=== PATIENT | female | born 1995 | race Caucasian/White ===

== ENCOUNTER 2016-11-06 17:27 | Emergency (ER) | payer MEDICAID ==
[~2016-11-06] VITALS: Wt 67.0 kg
[~2016-11-06 17:27] MED LIST: BISM262O23 PO; CEPH-443 PO; ZOF8 PO
[2016-11-06 19:23] LABS: URINE BLOOD (Dip) POC 2+ (NEGATIVE)
[2016-11-06] MEDS ORDERED: SOD CHLORIDE 0.9% 1,000 ML IV ONE (19:30)
[2016-11-06 20:11] LABS: BASOPHILS % 0.3 % (0.0-2.0); EOSINOPHILS % 0.4 % (0.0-7.0); HEMATOCRIT 46.1 % (37.0-47.0); HEMOGLOBIN 15.6 g/dl (12.0-16.0); LYMPHOCYTES # 1.4 10^3/ul (0.8-2.9); LYMPHOCYTES % 13.9 % (15.0-51.0); MEAN CORPUSCULAR HGB CONC 33.8 g/dl (32.0-37.0); MEAN CORPUSCULAR VOLUME 91.8 fl (82.0-101.0); MEAN PLATELET VOLUME 8.1 fl (7.4-10.4); MONOCYTE # 0.4 10^3/ul (0.3-0.9); MONOCYTES % 3.9 % (0.0-11.0); NEUTROPHIL # 8.2 10^3/ul (1.6-7.5); NEUTROPHILS % 81.5 % (39.0-77.0); PLATELET COUNT 309 10^3/UL (140-440); RED BLOOD COUNT 5.02 10^6/ul (4.20-5.40); RED CELL DISTRIBUTION WIDTH 13.4 % (11.5-14.5); UNCORRECTED WBC 10.1 10^3/ul (4.8-10.8); WHITE BLOOD COUNT 10.1 10^3/ul (4.8-10.8)
[2016-11-06 20:13] LABS: CHLORIDE 101 mmol/L (97-110); INR 0.98; POTASSIUM 3.7 mmol/L (3.5-5.1); SODIUM 144 mmol/L (135-144)
[2016-11-06 20:14] LABS: CONDITION 1; PARTIAL THROMBOPLASTIN TIME 27.3 Sec (25.0-35.0)
[2016-11-06 20:16] LABS: ANION GAP 22 (8-16); BLOOD UREA NITROGEN 13 mg/dl (7-20); CALCIUM 10.1 mg/dl (8.4-10.2); CARBON DIOXIDE 25 mmol/L (21-31); CREATININE 0.77 mg/dl (0.44-1.00); GLUCOSE 99 mg/dl (70-220)
[2016-11-06 20:31] LABS: TROPONIN-I < 0.012 ng/ml (0.00-0.12)
--- NOTE | 2016-11-06 21:18 | ERD ---
ER Documentation Chief Complaint Date/Time DATE: 11/06/16 TIME: 21:12 Chief Complaint PALPITATIONS SINCE THIS AM HPI This is a 21-year-old female presenting to the emergency department for palpitations 1 day. Patient states symptoms started this morning. Patient feels chest pressure and difficulty breathing at times. No cough. Denies nausea, vomiting, diarrhea or abdominal pain. No dysuria or hematuria. No history of any heart problems or asthma. No wheezing. No difficulty swallowing or muffled voice. No fevers or chills. Last menstrual period October 11, 2016 ROS All systems reviewed and are negative except as per history of present illness. Medications Home Meds Active Scripts Cephalexin* (Keflex*) 500 Mg Capsule, 500 MG PO QID for 5 Days, CAP Prov:KIMBERLEE BOOTH MD 02/01/16 Bismuth Subsalicylate* (Pepto-Bismol*) 262 Mg/15 Ml Oral.susp, 15 ML PO Q3H Y for DIARRHEA for 4 Days, ML Prov:KIMBERLEE BOOTH MD 02/01/16 Ondansetron Hcl* (Zofran* ODT) 8 mg -ODT Tab.disper, 8 MG PO Q6 Y for NAUSEA AND /OR VOMITING, #8 TAB Prov:KIMBERLEE BOOTH MD 02/01/16 Allergies Allergies: Coded Allergies: Penicillins (Unverified Allergy, Unknown, RASH, 02/11/15) PMhx/Soc Medical and Surgical Hx: pt denies Surgical Hx History of Surgery: No Anesthesia Reaction: No Hx Neurological Disorder: No Hx Respiratory Disorders: No Hx Cardiac Disorders: No Hx Psychiatric Problems: No Hx Miscellaneous Medical Probl: Yes (Pyelonephritis) Hx Alcohol Use: No Hx Substance Use: No Hx Tobacco Use: No Smoking Status: Current every day smoker Physical Exam Vitals Vital Signs Date Time Temp Pulse Resp B/P Pulse Ox O2 Delivery O2 Flow Rate FiO2 11/06/16 17:31 98.0 126 18 149/90 99 Physical Exam const: No acute distress, alert Head: Atraumatic Eyes: Normal Conjunctiva. PERRL ENT: Normal External Ears, Nose and Mouth. No erythema or exudate posterior pharynx. TMs normal bilaterally.. Neck: Full range of motion..~ No meningismus. Resp: Clear to auscultation bilaterally. No wheezing, rhonchi or crackles. Cardio: Regular rate and rhythm, no murmurs Abd: Soft, non tender, non distended. Normal bowel sounds Skin: No petechiae or rashes Back: No midline or flank tenderness Ext: No cyanosis, or edema Neur: Awake and alert Psych: Normal Mood and Affect Result Diagram: 11/06/16192511/06/161925 Results 24 hrs Laboratory Tests Test 11/06/16 19:25 11/06/16 19:26 Bedside Urine Blood 2+ Bedside Urine Glucose (UA) Negative Bedside Urine Ketones (LAB) Negative Bedside Urine Leukocyte Esterase (L Negative Bedside Urine Nitrite (LAB) Negative Bedside Urine Protein (LAB) Negative Bedside Urine pH (LAB) 5.5 Activated Partial Thromboplast Time 27.3Sec Anion Gap 22 Basophils # 0.010^3/ul Basophils % 0.3% Beta HCG, Quantitative 97.5mIU/ml Blood Urea Nitrogen 13mg/dl Calcium Level 10.1mg/dl Carbon Dioxide Level 25mmol/L Chloride Level 101mmol/L Creatinine 0.77mg/dl Eosinophils # 0.010^3/ul Eosinophils % 0.4% Glucose Level 99mg/dl Hematocrit 46.1% Hemoglobin 15.6g/dl INR International Normalized Ratio 0.98 Lymphocytes # 1.410^3/ul Lymphocytes % 13.9% Mean Corpuscular Hemoglobin 31.0pg Mean Corpuscular Hemoglobin Concent 33.8g/dl Mean Corpuscular Volume 91.8fl Mean Platelet Volume 8.1fl Monocytes # 0.410^3/ul Monocytes % 3.9% Neutrophils # 8.210^3/ul Neutrophils % 81.5% Nucleated Red Blood Cells # 0.010^3/ul Nucleated Red Blood Cells % 0.0/100WBC Platelet Count 79155^3/UL Potassium Level 3.7mmol/L Prothrombin Time 13.0Sec Prothrombin Time Ratio 1.0 Red Blood Count 5.0210^6/ul Red Cell Distribution Width 13.4% Sodium Level 144mmol/L Troponin I < 0.012ng/ml White Blood Count 10.110^3/ul Current Medications Medications (Trade) Dose Ordered Sig/Carlos Route PRN Reason Start Time Stop Time Status Last Admin Dose Admin Sodium Chloride (NS) 1,000 ml @ 1,000 mls/hr Q1H ONCE IV 11/06/16 19:30 11/06/16 20:29 DC 11/06/16 19:29 Procedures/MDM ED COURSE: The patient was stable throughout ED course. I kept the patient and/or family informed of laboratory and diagnostic imaging results throughout the ED course. Laboratory CBC no significant infection or anemia BMP no significant electrolyte imbalance PT 13 PTT 27.3 INR 0.98 Troponin less than 0.012 Beta-hCG 97.5 Imaging Chest x-ray was ordered however canceled after urine positive. EKG: As interpreted by Dr. Figueroa and myself Rate/Rhythm: Normal sinus rhythm with incomplete right bundle branch block with heart rate 99 bpm QRS, ST, T-waves: No changes consistent w/ acute ischemia Impression: No evidence of ischemia or arrhythmia MDM: 21-year-old female presents emergency department for heart palpitations and chest pressure starting today. An IV access obtained and patient was given IV fluid bolus of normal saline. Labs are unremarkable. Troponin is negative. Urine is negative for infection. Urine is positive. EKG shows normal sinus rhythm with incomplete right bundle branch block with heart rate 99 bpm. Patient appears calm and comfortable throughout ED visit. Heart rate has reduced since initial vital signs were taken. No signs or symptoms of respiratory distress. Physical exam is overall unremarkable. Patient informed that she is . Patient was unaware of this. Resources provided for local [facility] clinics. Patient is appropriate for outpatient management. Instructed patient to follow- up with [facility] and primary care provider in the next 2-3 days for reassessment and additional management. Return to ED for any high fever, chest pain, difficulty breathing, shortness breath, wheezing, vomiting, diarrhea, abdominal pain or any new or worsening symptoms. Patient verbalizes understanding. All questions answered at discharge. Departure Diagnosis: Primary Impression: Palpitations Additional Impression: Weeks of gestation: unspecified Qualified Code: Z33.1 - , unspecified gestational age Condition: Stable Patient Instructions: Palpitations, , New Dx Referrals: COMMUNITY CLINICS YOU HAVE RECEIVED A MEDICAL SCREENING EXAM AND THE RESULTS INDICATE THAT YOU DO NOT HAVE A CONDITION THAT REQUIRES URGENT TREATMENT IN THE EMERGENCY DEPARTMENT. FURTHER EVALUATION AND TREATMENT OF YOUR CONDITION CAN WAIT UNTIL YOU ARE SEEN IN YOUR DOCTORS OFFICE WITHIN THE NEXT 1-2 DAYS. IT IS YOUR RESPONSIBILITY TO MAKE AN APPOINTMENT FOR FOLOW-UP CARE. IF YOU HAVE A PRIMARY DOCTOR --you should call your primary doctor and schedule an appointment IF YOU DO NOT HAVE A PRIMARY DOCTOR YOU CAN CALL OUR PHYSICIAN REFERRAL HOTLINE AT IF YOU CAN NOT AFFORD TO SEE A PHYSICIAN YOU CAN CHOSE FROM THE FOLLOWING [facility] [address] [facility] [address] [facility] [address] [facility] [address] [facility] [address] [facility]. [facility] [address] [facility]. [facility] YOU HAVE RECEIVED A MEDICAL SCREENING EXAM AND THE RESULTS INDICATE THAT YOU DO NOT HAVE A CONDITION THAT REQUIRES URGENT TREATMENT IN THE EMERGENCY DEPARTMENT. FURTHER EVALUATION AND TREATMENT OF YOUR CONDITION CAN WAIT UNTIL YOU ARE SEEN IN YOUR DOCTORS OFFICE WITHIN THE NEXT 1-2 DAYS. IT IS YOUR RESPONSIBILITY TO MAKE AN APPOINTMENT FOR FOLOW-UP CARE. IF YOU HAVE A PRIMARY DOCTOR --you should call your primary doctor and schedule and appointment IF YOU DO NOT HAVE A PRIMARY DOCTOR YOU CAN CALL OUR PHYSICIAN REFERRAL HOTLINE AT . IF YOU CAN NOT AFFORD TO SEE A PHYSICIAN YOU CAN CHOSE FROM THE FOLLOWING [facility]: [facility] [address] [place] [address] [facility] [address] [place] [address] [facility] [address] [place] [address] [facility] REFERRAL [place] DOMÍ[place]UE[place] [address] [facility] [address] [place] [address] OFFICE FAX DAVID SANCHEZ [address] [place] [address] [address] ROBLES [place] [address] [place], [place] [id number] DR GARCIA [facility] [address], [address], [place] [address] [address] CLEARY, [facility] [address] [facility] [place] [address] [facility] [address] [place] [address] [address] [facility], [facility] [address] - [address] BALL, CARLA [address] [facility] [address] [address] [place]ELA, [place] [address] [facility]. [address], [place] [address] [address] MARTINEZ, [facility] [address] [place], [place] [id number] Additional Instructions: Call your primary care doctor TOMORROW for an appointment during the next 2-3 days.See the doctor sooner or return here if your condition worsens before your appointment time. Return to ED for any high fever, chest pain, difficulty breathing, shortness breath, wheezing, vomiting, diarrhea, abdominal pain or any new or worsening symptoms. SOLANGE MIRZA NP Nov 06, 2016 21:18
[2016-11-06 21:25] VITALS: BP 122/59; PULSE 69; RESP 18; TEMP 99.5
== END 2016-11-06 21:25 | disposition home or self-care (01) ==
LOC: FTE 17:27
DX: R00.2 Palpitations (principal); F17.210 Nicotine dependence, cigarettes, uncomplicated; R07.89 Other chest pain; Z33.1 Pregnant state, incidental
CPT/HCPCS: 36415; 80048; 81003; 84484; 84702; 85025; 85610; 85730; 93005; J7030; Z7502

== ENCOUNTER 2016-12-23 09:36 | Emergency (ER) | payer MEDICAID ==
[~2016-12-23] VITALS: Ht 157.5 cm; Wt 67.8 kg
[2016-12-23 09:41] VITALS: Ht 157.5 cm; Wt 67.8 kg
[2016-12-23] MEDS ORDERED: ACETAMINOPHEN 500 MG TAB PO STA (11:53)
[2016-12-23 12:16] LABS: ADD SCAN DIFF NO
[2016-12-23 12:19] LABS: ADD UMIC YES; URINE BILIRUBIN (Dip) NEGATIVE (NEGATIVE); URINE BLOOD (Dip) 2+ (NEGATIVE); URINE COLOR LT. YELLOW (YELLOW); URINE GLUCOSE (Dip) NEGATIVE (NEGATIVE); URINE KETONES (Dip) NEGATIVE (NEGATIVE); URINE LEUKOCYTE ESTERASE (Dip) 1+ (NEGATIVE); URINE NITRITE (Dip) NEGATIVE (NEGATIVE); URINE TOTAL PROTEIN (Dip) NEGATIVE (NEGATIVE); URINE UROBILINOGEN (Dip) 0.2 E.U./dL (0.1-1.0)
[2016-12-23 12:23] LABS: BASOPHILS % 0.3 % (0.0-2.0); EOSINOPHILS # 0.1 10^3/ul (0.0-0.5); EOSINOPHILS % 1.5 % (0.0-7.0); HEMOGLOBIN 15.4 g/dl (12.0-16.0); LYMPHOCYTES # 2.4 10^3/ul (0.8-2.9); LYMPHOCYTES % 30.1 % (15.0-51.0); MEAN CORPUSCULAR HGB CONC 32.8 g/dl (32.0-37.0); MEAN CORPUSCULAR VOLUME 94.6 fl (82.0-101.0); MEAN PLATELET VOLUME 10.4 fl (7.4-10.4); MONOCYTE # 0.4 10^3/ul (0.3-0.9); MONOCYTES % 5.4 % (0.0-11.0); NEUTROPHIL # 4.9 10^3/ul (1.6-7.5); NEUTROPHILS % 62.4 % (39.0-77.0); PLATELET COUNT 221 10^3/UL (140-415); RED BLOOD COUNT 4.97 10^6/ul (4.20-5.40); RED CELL DISTRIBUTION WIDTH 12.3 % (11.5-14.5); WHITE BLOOD COUNT 7.8 10^3/ul (4.8-10.8)
[2016-12-23 13:07] LABS: BACTERIA,URINE MANY
[2016-12-23] MEDS ORDERED: CEPHALEXIN 500 MG CAP PO ONE (13:30)
--- NOTE | 2016-12-23 13:43 | RADRPT ---
PROCEDURE: US Pelvis/OB. CLINICAL INDICATION: vaginal bleeding TECHNIQUE: Multiple sonographic images of the pelvis were obtained utilizing a transabdominal and endovaginal technique. The images were reviewed on a PACS workstation. COMPARISON: None. FINDINGS: There is a small cystic structure within the endometrium measuring 2.1 cm which would correspond to a calculated gestational age of 6 weeks and 6 days. No pole or normal yolk sac is visualized. The ovaries are normal. No abnormal adnexal masses are present. The right ovary measures 2.5 x 1.5 x 1.5 cm. The left ovary measures 2.4 x 1.9 x 1.7 cm. No significant free fluid is present within the pelvis. RPTAT: AA IMPRESSION: Cystic structure within the endometrium corresponding to a 6 weeks and 6-day gestation with no pole. The findings likely represent a nonviable . Close followup ultrasound and hCG is recommended. .Amador Pan MD, MD Date Time Electronically viewed and signed by .Amador Pan MD, on 12/23/2016 13:43 .S/
[2016-12-23] MEDS ORDERED: CEPH-443 PO (14:02)
--- NOTE | 2016-12-23 14:06 | ERD ---
ER Documentation Chief Complaint Date/Time DATE: 12/23/16 TIME: 14:04 Chief Complaint 8 weeks with ap HPI This 21-year-old female presents with lower pelvic pain for last 3 days. She is approximately 8 weeks by dates. She has some spotting as well. She denies fevers. She has had some vomiting since diagnosis of , nonbilious nonbloody. ROS All systems reviewed and are negative except as per history of present illness. Medications Home Meds Active Scripts Cephalexin* (Keflex*) 500 Mg Capsule, 500 MG PO QID for 5 Days, CAP Prov:KIMBERLEE BOOTH MD 12/23/16 Cephalexin* (Keflex*) 500 Mg Capsule, 500 MG PO QID for 5 Days, CAP Prov:KIMBERLEE BOOTH MD 02/01/16 Bismuth Subsalicylate* (Pepto-Bismol*) 262 Mg/15 Ml Oral.susp, 15 ML PO Q3H Y for DIARRHEA for 4 Days, ML Prov:KIMBERLEE BOOTH MD 02/01/16 Ondansetron Hcl* (Zofran* ODT) 8 mg -ODT Tab.disper, 8 MG PO Q6 Y for NAUSEA AND /OR VOMITING, #8 TAB Prov:KIMBERLEE BOOTH MD 02/01/16 Allergies Allergies: Coded Allergies: Penicillins (Verified Allergy, Unknown, RASH, 12/23/16) PMhx/Soc Medical and Surgical Hx: pt denies Medical Hx, pt denies Surgical Hx History of Surgery: No Anesthesia Reaction: No Hx Neurological Disorder: No Hx Respiratory Disorders: No Hx Cardiac Disorders: No Hx Psychiatric Problems: No Hx Miscellaneous Medical Probl: Yes (Pyelonephritis) Hx Alcohol Use: No Hx Substance Use: No Hx Tobacco Use: No Smoking Status: Never smoker Physical Exam Vitals Vital Signs Date Time Temp Pulse Resp B/P Pulse Ox O2 Delivery O2 Flow Rate FiO2 12/23/16 09:41 98.1 78 18 118/59 99 Physical Exam Const: [] Head: Atraumatic Eyes: Normal Conjunctiva ENT: Normal External Ears, Nose and Mouth. Neck: Full range of motion..~ No meningismus. Resp: Clear to auscultation bilaterally Cardio: Regular rate and rhythm, no murmurs Abd: Soft, non tender, non distended. Normal bowel sounds Skin: No petechiae or rashes Back: No midline or flank tenderness Ext: No cyanosis, or edema Neur: Awake and alert Psych: Normal Mood and Affect Result Diagram: 12/23/16 1200 Results 24 hrs Laboratory Tests Test 12/23/16 12:00 Basophils # 0.010^3/ul Basophils % 0.3% Beta HCG, Quantitative 59750.0mIU/ml Eosinophils # 0.110^3/ul Eosinophils % 1.5% Hematocrit 47.0% Hemoglobin 15.4g/dl Lymphocytes # 2.410^3/ul Lymphocytes % 30.1% Mean Corpuscular Hemoglobin 31.0pg Mean Corpuscular Hemoglobin Concent 32.8g/dl Mean Corpuscular Volume 94.6fl Mean Platelet Volume 10.4fl Monocytes # 0.410^3/ul Monocytes % 5.4% Neutrophils # 4.910^3/ul Neutrophils % 62.4% Nucleated Red Blood Cells # 0.010^3/ul Nucleated Red Blood Cells % 0.0/100WBC Platelet Count 00967^3/UL Red Blood Count 4.9710^6/ul Red Cell Distribution Width 12.3% Urine Bacteria MANY Urine Bilirubin NEGATIVE Urine Clarity CLEAR Urine Color LT. YELLOW Urine Epithelial Cells MANY Urine Glucose NEGATIVE% Urine Hemoglobin 2+ Urine Ketones NEGATIVE Urine Leukocyte Esterase 1+ Urine Microscopic RBC 10-25/HPF Urine Microscopic WBC 10-25/HPF Urine Nitrite NEGATIVE Urine Specific [place] 1.025 Urine Total Protein NEGATIVE Urine Urobilinogen 0.2 E.U./dL Urine Yeast MODERATE Urine pH 5.5 White Blood Count 7.810^3/ul Current Medications Medications (Trade) Dose Ordered Sig/Carlos Route PRN Reason Start Time Stop Time Status Last Admin Dose Admin Acetaminophen (Tylenol Tab) 500 mg ONCE STAT PO 12/23/16 11:53 12/23/16 11:54 DC 12/23/16 12:03 Cephalexin (Keflex) 500 mg ONCE ONCE PO 12/23/16 13:30 12/23/16 13:31 DC 12/23/16 13:52 Procedures/MDM Quantitative hCG approximately 42,000. Patient is Rh+. Pelvic ultrasound shows approximately 2 cm intrauterine saclike structure without visible pole or yolk sac. There is no signs of adnexal . Urine shows 1+ leukocytes. Patient was given Keflex 500 mg of mouth. Patient presents with pelvic pain and vaginal bleeding of early . Differential includes early normal , threatened miscarriage, ectopic . Patient will be discharged home with instructions for recheck in 2 days. Patient gives additional history is associated your doctor yesterday and was told that she did have a failed was told to schedule D&C but she presented for a second opinion, this is why she was not forthcoming with previous visit of her PCP yesterday. Signs or symptoms currently not consistent with appendicitis, additional causes of abdominal pain patient should recheck as directed. Departure Diagnosis: Primary Impression: Threatened Condition: Stable Patient Instructions: Possible Miscarriage (Threatened ) Additional Instructions: Recommend repeat blood work and hormone level in 2 days. May be early normal , possible early miscarriage or possible ectopic. Urine shows infection will be treated for this as well. Recheck otherwise for new or worsening symptoms. KIMBERLEE BOOTH MD Dec 23, 2016 14:06
[2016-12-23 14:35] VITALS: BP 225/65; PULSE 56; RESP 16; TEMP 98.5
== END 2016-12-23 14:35 | disposition home or self-care (01) ==
LOC: FTE 09:36
DX: O20.0 Threatened abortion (principal); R10.2 Pelvic and perineal pain; Z3A.01 Less than 8 weeks gestation of pregnancy
CPT/HCPCS: 36415; 76801; 76817; 81001; 81003; 84702; 85025; 86900; 86901; Z7502; Z7610

== ENCOUNTER 2017-04-13 22:19 | Emergency (ER) | payer MEDICAID ==
[~2017-04-13] VITALS: Ht 152.4 cm; Wt 61.0 kg
[2017-04-13 22:23] VITALS: Ht 152.4 cm; Wt 61.0 kg
[2017-04-13] MEDS ORDERED: LIDOCAINE 1% (MDV) 20 ML INJ SC ONE (23:30)
[2017-04-13] MEDS ORDERED: IBUPROFEN 600 MG TAB PO ONE (23:30)
[2017-04-13] MEDS ORDERED: DIPHTH/TET/ACEL PERTUSS (ADULT) 0.5 ML VIAL IM* ONE (23:30)
[2017-04-13] MEDS ORDERED: BACITRACIN 0.9 GM OINT TOP ONE (23:30)
--- NOTE | 2017-04-14 00:13 | RADRPT ---
PROCEDURE: Right tibia and fibula. CLINICAL INDICATION: Pain. TECHNIQUE: 2 views including AP and lateral views of the right tibia and fibula were obtained. COMPARISON: None. FINDINGS: There is no fracture, dislocation or bone destruction. The joint spaces are within normal limits. Bone mineralization is within normal limits. There is no radiopaque foreign body or abnormal calcif ication. IMPRESSION: No evidence of fracture or radiopaque foreign body. .Nate Rausch MD, Date Time Electronically viewed and signed by .Nate Rausch MD, MD on 04/14/2017 00:13 .T/
--- NOTE | 2017-04-14 00:16 | ERD ---
ER Documentation Chief Complaint Date/Time DATE: 04/13/17 Chief Complaint Foreign body "toothpick" imbedded on right leg skin HPI The patient is a 21-year-old female who presents to the Emergency Department with complaint of a retained foreign body to the right lower extremity. The patient reports that yesterday, her brother was playing with colored toothpicks on the couch. When she returned home, she jumped onto the couch with bent knees , and suddenly felt a sharp pain to the right pretibial area, from a toothpick that was partially sticking out of her skin. The patient notes that she was able to remove a piece of the toothpick, but feels as if there is still a retained portion of the toothpick within her wound to the right lower extremity. Upon waking up this morning, she noted increased pain to the area, with mild surrounding erythema, warmth, swelling and tenderness to palpation. She denies any further bleeding or any spontaneous drainage. Denies crepitus. Denies fevers, sweats, chills, nausea or vomiting. Tetanus status unknown. No other complaints at this time. ROS All systems reviewed and are negative except as per history of present illness. Medications Home Meds Active Scripts Sulfamethoxazole/Trimethoprim* (Bactrim Ds* Tablet) 1 Each Tablet, 1 TAB PO BID for 7 Days, TAB Prov:MICHAEL GUAMAN PA-C 04/14/17 Cephalexin* (Keflex*) 500 Mg Capsule, 500 MG PO QID for 5 Days, CAP Prov:KIMBERLEE BOOTH MD 12/23/16 Cephalexin* (Keflex*) 500 Mg Capsule, 500 MG PO QID for 5 Days, CAP Prov:KIMBERLEE BOOTH MD 02/01/16 Bismuth Subsalicylate* (Pepto-Bismol*) 262 Mg/15 Ml Oral.susp, 15 ML PO Q3H Y for DIARRHEA for 4 Days, ML Prov:KIMBERLEE BOOTH MD 02/01/16 Ondansetron Hcl* (Zofran* ODT) 8 mg -ODT Tab.disper, 8 MG PO Q6 Y for NAUSEA AND /OR VOMITING, #8 TAB Prov:KIMBERLEE BOOTH MD 02/01/16 Allergies Allergies: Coded Allergies: Penicillins (Verified Allergy, Unknown, RASH, 12/23/16) PMhx/Soc Medical and Surgical Hx: pt denies Medical Hx, pt denies Surgical Hx History of Surgery: No Anesthesia Reaction: No Hx Neurological Disorder: No Hx Respiratory Disorders: No Hx Cardiac Disorders: No Hx Psychiatric Problems: No Hx Miscellaneous Medical Probl: Yes (Pyelonephritis) Hx Alcohol Use: No Hx Substance Use: No Hx Tobacco Use: No Smoking Status: Never smoker Physical Exam Vitals Vital Signs Date Time Temp Pulse Resp B/P Pulse Ox O2 Delivery O2 Flow Rate FiO2 04/14/17 01:13 98.1 68 17 131/72 97 Room Air 04/13/17 22:23 98.3 65 20 125/72 99 Physical Exam Const: Well-developed, well-nourished, in no acute distress. Head: Normocephalic. Atraumatic. Eyes: Normal Conjunctiva ENT: Normal External Ears, Nose and Mouth. Moist mucous membranes. Neck: Supple. Full range of motion. Resp: Clear to auscultation bilaterally Cardio: Regular rate and rhythm. Abd: Soft, non tender, non distended. Skin: Small puncture wound to the right pretibial region with 1 cm x 1 cm circular region of surrounding erythema, warmth, swelling and tenderness to palpation. No abscess formation. No crepitus. No lymphatic streaking. No purulent drainage. Back: No midline or flank tenderness Ext: No clubbing or cyanosis. Normal range of motion of the upper and lower extremities bilaterally. Distal pulses 2+. Capillary refill is less than 2 seconds. Distal neurovascular status intact. Neur: Awake and alert. Motor and sensation grossly intact. Psych: Cooperative. Appropriate. Results 24 hrs Current Medications Medications (Trade) Dose Ordered Sig/Carlos Route PRN Reason Start Time Stop Time Status Last Admin Dose Admin Ibuprofen (Motrin) 600 mg ONCE ONCE PO 04/13/17 23:30 04/13/17 23:31 DC 04/14/17 00:20 Diphtheria/ Tetanus/Acell Pertussis (Adacel) 0.5 ml ONCE ONCE IM* 04/13/17 23:30 04/13/17 23:31 DC 04/14/17 00:21 Lidocaine (Xylocaine 1% (Mdv) 20 ml) 20 ml ONCE ONCE SC 04/13/17 23:30 04/13/17 23:31 DC Bacitracin (Bacitracin Oint (Ud)) 1 applic ONCE ONCE TOP 04/13/17 23:30 04/13/17 23:31 DC 04/14/17 00:22 Procedures/MDM DIAGNOSTIC TESTS AND INTERPRETATION: PROCEDURE: Right tibia and fibula. CLINICAL INDICATION: Pain. TECHNIQUE: 2 views including AP and lateral views of the right tibia and fibula were obtained. COMPARISON: None. FINDINGS:There is no fracture, dislocation or bone destruction. The joint spaces are within normal limits. Bone mineralization is within normal limits. There is no radiopaque foreign body or abnormal calcification. IMPRESSION:No evidence of fracture or radiopaque foreign body. .Nate Rausch MD, MD Date Time Electronically viewed and signed by .Nate Rausch MD, MD on 04/14/2017 00:13 PROCEDURE: FOREIGN BODY REMOVAL FROM RIGHT LOWER EXTREMITY INDICATION: Retained foreign body to the right lower extremity. CONSENT:Consent was obtained from the patient prior to the procedure. Indications, risks, and benefits were explained at length. PROCEDURE SUMMARY: A timeout protocol was performed prior to initiating the procedure. The patient was positioned appropriately. The site was anesthetized with 1.5 cc 1% lidocaine without epinephrine. NaCl and Betadine were used for wound cleansing. Using an 11-blade scalpel, the patient's puncture wound edges were extended to a total of 1.5 cm linear wound opening to the right lower extremity. The wound was then explored. The area was prepared and draped in the usual sterile manner with the wound exposed. Using Maggie Forceps, a 0.5 cm distal piece of toothpick was removed from the patient's wound, intact. No further foreign bodies seen. The patient's wound was then irrigated with normal saline. Three 5.0 simple interrupted Ethilon sutures were placed with good approximation. Bleeding was minimal. The patient tolerated the procedure well without complications. The wound was dressed with bacitracin and sterile gauze. Standard post-procedure care was explained and return precautions were given. MEDICAL DECISION MAKING: This is a 21-year-old female who presents to the emergency department for a foreign body to her right lower extremity, that was removed successfully. The wound is now clean and dry, with no evidence of further retained foreign body seen. The patient tolerated the procedure well. The patient continues to be stable, and neurovascularly intact, with no evidence of complication. The foreign body, which was the distal end of a toothpick, was returned to the patient, per her request. At this time, I believe the patient is suitable for outpatient management, and she will be discharged home with prescription for Bactrim DS and given strict return precautions for signs of deteriorating or worsening condition. I recommend that she follow up with her primary care provider in 2-3 days for reevaluation and further management, or return to the ER sooner for any new or worsening symptoms. I shared my medical decision making and plan with the patient at length and in great detail, and she verbally understands and agrees with the plan for further observation and care as an outpatient. At the time of discharge all questions were answered. Departure Diagnosis: Primary Impression: Foreign body of skin of lower leg Encounter type: initial encounter Laterality: right Qualified Code: S80.851A - Foreign body of skin of lower leg, right, initial encounter Condition: Stable Patient Instructions: Foreign Body, Soft Tissue (Removed) Additional Instructions: Call your primary care doctor TOMORROW for an appointment during the next 2-3 days for wound check, reevaluation and further management. See the doctor sooner or return here if your condition worsens before your appointment time. Suture removal in 7 days. MICHAEL GUAMAN PA-C Apr 14, 2017 00:16
[2017-04-14] MEDS ORDERED: SULF1TAB31 PO (00:58)
[2017-04-14 01:13] VITALS: BP 131/72; PULSE 68; RESP 17; TEMP 98.1
== END 2017-04-14 01:14 | disposition home or self-care (01) ==
LOC: FTE 22:19
DX: S81.841A Puncture wound with foreign body, right lower leg, initial encounter (principal); W22.8XXA Striking against or struck by other objects, initial encounter; Y92.9 Unspecified place or not applicable; Z23 Encounter for immunization
CPT/HCPCS: 12001; 73590; 90471; 90715; Z7502; Z7610

== ENCOUNTER 2017-04-22 15:43 | Emergency (ER) | payer MEDICAID ==
[~2017-04-22] VITALS: Ht 157.5 cm; Wt 59.5 kg
[~2017-04-22 15:43] MED LIST changes: +SULF1TAB31 PO
[2017-04-22 15:45] VITALS: Ht 157.5 cm; Wt 59.5 kg
[2017-04-22] MEDS ORDERED: ACETAMINOPHEN 325 MG TAB PO ONE (16:00)
[2017-04-22] MEDS ORDERED: IBUP400T22 PO (17:07)
[2017-04-22] MEDS ORDERED: NEOM28OI TP (17:07)
--- NOTE | 2017-04-22 17:18 | RADRPT ---
PROCEDURE: XR left foot. CLINICAL INDICATION: Laceration. Glass. TECHNIQUE: AP, lateral and oblique views of the left foot were obtained. COMPARISON: None. FINDINGS: Mineralization is within normal limits. No fracture or osseous lesion is identified. There is no e vidence for dislocation. The metatarsophalangeal, interphalangeal, and mid tarsal joint spaces are preserved. The soft tissues are unremarkable. There is no evidence for a radiopaque foreign body. IMPRESSION: Unremarkable left foot series without evidence of radiopaque foreign body. RPTAT:HJJR Physician Anjel Date Time Electronically viewed and signed by Physician Anjel on 04/22/2017 17:18 /
--- NOTE | 2017-04-22 17:23 | ERD ---
ER Documentation Chief Complaint Date/Time DATE: 04/22/17 TIME: 17:09 Chief Complaint LEFT FOOT POSSIBLE [place] HPI 21-year-old female complains of a puncture on her left foot. She stepped broken coffee mug when she stepped on it. She is concerned about a piece of glass in her foot. She has restricted range of motion weakness. Her tetanus is up-to-date last week when she stepped on a toothpick. ROS All systems reviewed and are negative except as per history of present illness. Medications Home Meds Active Scripts Ibuprofen* (Motrin*) 400 Mg Tab, 400 MG PO Q6, #15 TAB Prov:KIMBERLEE BOOTH MD 04/22/17 Neomycin Marcelnio/Bacitrac Zn/Poly (Triple Antibiotic Ointment) 28 Gm Oint...g., 28 GM TP TID for 7 Days Prov:KIMBERLEE BOOTH MD 04/22/17 Sulfamethoxazole/Trimethoprim* (Bactrim Ds* Tablet) 1 Each Tablet, 1 TAB PO BID for 7 Days, TAB Prov:MICHAEL GUAMAN PA-C 04/14/17 Cephalexin* (Keflex*) 500 Mg Capsule, 500 MG PO QID for 5 Days, CAP Prov:KIMBERLEE BOOTH MD 12/23/16 Cephalexin* (Keflex*) 500 Mg Capsule, 500 MG PO QID for 5 Days, CAP Prov:KIMBERLEE BOOTH MD 02/01/16 Bismuth Subsalicylate* (Pepto-Bismol*) 262 Mg/15 Ml Oral.susp, 15 ML PO Q3H Y for DIARRHEA for 4 Days, ML Prov:KIMBERLEE BOOTH MD 02/01/16 Ondansetron Hcl* (Zofran* ODT) 8 mg -ODT Tab.disper, 8 MG PO Q6 Y for NAUSEA AND /OR VOMITING, #8 TAB Prov:KIMBERLEE BOOTH MD 02/01/16 Allergies Allergies: Coded Allergies: Penicillins (Verified Allergy, Unknown, RASH, 12/23/16) PMhx/Soc History of Surgery: No Anesthesia Reaction: No Hx Neurological Disorder: No Hx Respiratory Disorders: No Hx Cardiac Disorders: No Hx Psychiatric Problems: No Hx Miscellaneous Medical Probl: Yes (Pyelonephritis) Hx Alcohol Use: No Hx Substance Use: No Hx Tobacco Use: No Physical Exam Vitals Vital Signs Date Time Temp Pulse Resp B/P Pulse Ox O2 Delivery O2 Flow Rate FiO2 04/22/17 15:45 98.3 65 18 138/81 97 Physical Exam Const: [] Alert, not ill-appearing. Head: Atraumatic Eyes: Normal Conjunctiva ENT: Normal External Ears, Nose and Mouth. Neck: Full range of motion..~ No meningismus. Resp: Clear to auscultation bilaterally Cardio: Regular rate and rhythm, no murmurs Abd: Soft, non tender, non distended. Normal bowel sounds Skin: No petechiae or rashes Back: No midline or flank tenderness Ext: No cyanosis, or edema. There is approximately 2 mm puncture wound on the medial aspect of left foot around the tarsometatarsal area. There is no erythema or discharge. There is appreciated gross foreign body. Neur: Awake and alert Psych: Normal Mood and Affect Results 24 hrs Current Medications Medications (Trade) Dose Ordered Sig/Carlos Route PRN Reason Start Time Stop Time Status Last Admin Dose Admin Acetaminophen (Tylenol Tab) 650 mg ONCE ONCE PO 04/22/17 16:00 04/22/17 16:01 DC 04/22/17 16:08 Procedures/MDM 1 cc of lidocaine was injected into the left foot puncture wound after prepped with Betadine. No foreign body was appreciated via blunt dissection. X-ray Foot 3V Interpreted by me: Bones: [No fracture] Joints: [No dislocation] Foreign body: [None] impression-normal left foot x-ray. Patient presents with a puncture wound left foot without appreciated foreign body, fracture, signs of infection. She will treated with ibuprofen wound care instructions for wound check in 2 days. Patient was advised to return for fevers, redness, new worsening symptoms with primary doctor this week. Departure Diagnosis: Primary Impression: Puncture wound Condition: Stable Patient Instructions: Puncture Wound, Foot Additional Instructions: No foreign body appreciated today. Recheck in 2-3 days for redness, fevers, new worsening symptoms. KIMBERLEE BOOTH MD Apr 22, 2017 17:21
== END 2017-04-22 17:17 | disposition home or self-care (01) ==
LOC: FTE 15:43
DX: S91.332A Puncture wound without foreign body, left foot, initial encounter (principal); W25.XXXA Contact with sharp glass, initial encounter; Y92.9 Unspecified place or not applicable
CPT/HCPCS: 73630; Z7502; Z7610

== ENCOUNTER 2017-08-28 21:00 | Emergency (ER) | payer SELFPAY ==
[~2017-08-28] VITALS: Ht 160 cm; Wt 62.3 kg
[~2017-08-28 21:00] MED LIST changes: +IBUP400T22 PO; +NEOM28OI TP
[2017-08-28 21:42] VITALS: Ht 160 cm; Wt 62.3 kg
== END 2017-08-28 23:20 | disposition left against medical advice (07) ==
LOC: FTE 21:00 → E/R 23:20
DX: Z53.21 Procedure and treatment not carried out due to patient leaving prior to being seen by health care provider (principal)

== ENCOUNTER 2017-09-08 08:33 | Emergency (ER) | payer SELFPAY ==
[~2017-09-08] VITALS: Wt 59.6 kg
--- NOTE | 2017-09-08 09:29 | ERD ---
ER Documentation Chief Complaint Chief Complaint RASH ON ARMS/BACK, ONSET 3 WEEKS HPI 21-year-old female who presents emergency department rash to back that started 4 days ago. Stated that her bilateral arm rash started 3 weeks ago. She added that the itchiness is worse at night. LMP: 3 weeks ago. A1. Denies headache, dizziness, blurred vision, throat pain, difficulty swallowing, throat tightness, throat itchiness, shoulder pain, chest pain, chest tightness, abdominal pain, nausea, vomiting, constipation, diarrhea, or possibility of being , urinary symptoms, loss of bowel bladder control, changes in bowel bladder habits, recent exposure to any illness, recent long travel, recent antibiotic use in the last 3 months, fever, chills, numbness or tingling sensation, difficulty walking. Allergies to penicillin. No past medical history. No surgeries. Does not take any prescription medication at home. Social: Works at the [employer]. Smokes 1 to sticks of cigarettes. Denies use of alcoholic beverages, use of illegal drugs. ROS All systems reviewed and are negative except as per history of present illness. Medications Home Meds Active Scripts Loratadine (Loratadine) 10 Mg Tab.rapdis, 10 MG PO DAILY for 14 Days Prov:AINSLEY FRITZ 09/08/17 Prednisone* (Prednisone*) 20 Mg Tab, 40 MG PO DAILY for 5 Days, TAB Prov:AINSLEY FRITZ 09/08/17 Diphenhydramine Hcl* (Benadryl*) 25 Mg Cap, 25 MG PO Q8 Y for ITCHING, #30 CAP Prov:AINSLEY FRITZ 09/08/17 Permethrin (Permethrin) 120 Ml Liquid, 120 ML TP apply once for 1 Day, #1 Prov:AINSLEY FRITZ 09/08/17 Ibuprofen* (Motrin*) 400 Mg Tab, 400 MG PO Q6, #15 TAB Prov:KIMBERLEE BOOTH MD 04/22/17 Neomycin Marcelino/Bacitrac Zn/Poly (Triple Antibiotic Ointment) 28 Gm Oint...g., 28 GM TP TID for 7 Days Prov:KIMBERLEE BOOTH MD 04/22/17 Sulfamethoxazole/Trimethoprim* (Bactrim Ds* Tablet) 1 Each Tablet, 1 TAB PO BID for 7 Days, TAB Prov:MICHAEL GUAMAN PA-C 04/14/17 Cephalexin* (Keflex*) 500 Mg Capsule, 500 MG PO QID for 5 Days, CAP Prov:KIMBERLEE BOOTH MD 12/23/16 Cephalexin* (Keflex*) 500 Mg Capsule, 500 MG PO QID for 5 Days, CAP Prov:KIMBERLEE BOOTH MD 02/01/16 Bismuth Subsalicylate* (Pepto-Bismol*) 262 Mg/15 Ml Oral.susp, 15 ML PO Q3H Y for DIARRHEA for 4 Days, ML Prov:KIMBERLEE BOOTH MD 02/01/16 Ondansetron Hcl* (Zofran* ODT) 8 mg -ODT Tab.disper, 8 MG PO Q6 Y for NAUSEA AND /OR VOMITING, #8 TAB Prov:KIMBERLEE BOOTH MD 02/01/16 Allergies Allergies: Coded Allergies: Penicillins (Verified Allergy, Unknown, RASH, 12/23/16) PMhx/Soc History of Surgery: No Anesthesia Reaction: No Hx Neurological Disorder: No Hx Respiratory Disorders: No Hx Cardiac Disorders: No Hx Psychiatric Problems: No Hx Miscellaneous Medical Probl: Yes (Pyelonephritis) Hx Alcohol Use: Yes Hx Substance Use: No Hx Tobacco Use: Yes Smoking Status: Never smoker Physical Exam Vitals Vital Signs Date Time Temp Pulse Resp B/P Pulse Ox O2 Delivery O2 Flow Rate FiO2 09/08/17 08:35 98.0 56 17 119/78 98 Physical Exam Const: [] Head: Atraumatic Eyes: Normal Conjunctiva ENT: Normal External Ears, Nose and Mouth. Neck: Full range of motion..~ No meningismus. Resp: Clear to auscultation bilaterally Cardio: Regular rate and rhythm, no murmurs Abd: Soft, non tender, non distended. Normal bowel sounds Skin: No petechiae. Upper back has rashes that is described as circular. No open wounds. No vesicular lesions. Linear rash to bilateral arms. Patient stated that this is very itchy and is worse at night. Back: No midline or flank tenderness Ext: No cyanosis, or edema Neur: Awake and alert Psych: Normal Mood and Affect Procedures/MDM 21-year-old female who presents emergency department rash to back that started 4 days ago. Stated that her bilateral arm rash started 3 weeks ago. She added that the itchiness is worse at night. LMP: 3 weeks ago. A1. Denies headache, dizziness, blurred vision, throat pain, difficulty swallowing, throat tightness, throat itchiness, shoulder pain, chest pain, chest tightness, abdominal pain, nausea, vomiting, constipation, diarrhea, or possibility of being , urinary symptoms, loss of bowel bladder control, changes in bowel bladder habits, recent exposure to any illness, recent long travel, recent antibiotic use in the last 3 months, fever, chills, numbness or tingling sensation, difficulty walking. Allergies to penicillin. No past medical history. No surgeries. Does not take any prescription medication at home. Social: Works at the [employer]. Smokes 1 to sticks of cigarettes. Denies use of alcoholic beverages, use of illegal drugs. Physical exam: Throat: Uvula is midline and not displaced. Tonsils are +1 bilaterally without redness and without exudates. Tolerating secretions. Patent airway. Speaks full and clear sentences. Lung sounds are clear to auscultation. Upper back has rashes that is described as circular. No open wounds. No vesicular lesions. Linear rash to bilateral arms. Patient stated that this is very itchy and is worse at night. Disease process was explained to the patient. She verbalized understanding and agreed with the plan of care. Differential diagnosis: Chickenpox versus allergic reaction versus hives versus scabies Final diagnosis: Scabies. Prescription: Permethrin. Benadryl. Prednisone. Claritin/ Loratadine. Health teaching about scabies and preventing the spread of this was given to the patient. Follow-up with PCP in the next 24-48 hours. PCP to refer patient to dip guider stoves if her symptoms persist. Come back here in the emergency department for any new symptoms or any worsening of symptoms. All questions and concerns were answered. Patient verbalized understanding and agreed with the plan of care. Hemodynamically stable on discharge. Departure Diagnosis: Primary Impression: Rash Additional Impression: Scabies Condition: Stable Additional Instructions: Follow-up with PCP in the next 24-48 hours. PCP to refer patient to dip guider stoves if her symptoms persist. Come back here in the emergency department for any new symptoms or any worsening of symptoms. All questions and concerns were answered. Patient verbalized understanding and agreed with the plan of care. AINSLEY FRITZ Sep 08, 2017 09:29
[2017-09-08] MEDS ORDERED: PERM120L5 TP (09:30)
[2017-09-08] MEDS ORDERED: BEN25 PO (09:31)
[2017-09-08] MEDS ORDERED: PRED20TA PO (09:31)
[2017-09-08] MEDS ORDERED: LORA10TA72 PO (09:32)
== END 2017-09-08 09:57 | disposition home or self-care (01) ==
LOC: FTE 08:33
DX: B86 Scabies (principal); F17.210 Nicotine dependence, cigarettes, uncomplicated
CPT/HCPCS: 99283

== ENCOUNTER 2019-02-17 19:37 | Inpatient (IN) | payer MEDICAID, OTHER ==
[~2019-02-17] VITALS: Ht 157.5 cm; Wt 61.5 kg
[~2019-02-17 19:37] MED LIST changes: +BEN25 PO; +IBUP-1561 PO; -IBUP400T22 PO; +LORA10TA72 PO; -NEOM28OI TP; +NEOM28OI2 TP; +PERM120L5 TP; +PRED20TA PO
[2019-02-17] MEDS ORDERED: morphine 4 MG/ML VIAL IV STA (20:50)
[2019-02-17] MEDS ORDERED: ONDANSETRON 4 MG INJ IV STA (20:50)
[2019-02-17] MEDS ORDERED: AZTREONAM 1 GM/NS (PMX) 50 ML IVPB STA (20:50)
[2019-02-17] MEDS ORDERED: ONDANSETRON 4 MG INJ IV PRN (21:00)
[2019-02-17] MEDS ORDERED: NACL 0.9% 3 ML SYG IV SCH (21:00)
[2019-02-17] MEDS ORDERED: ACETAMINOPHEN 325 MG TAB PO PRN ×2 (21:00)
[2019-02-17] MEDS ORDERED: VANCOMYCIN 1 GM (PMX) 250 ML IVPB ONE (21:00)
[2019-02-17] MEDS ORDERED: DIPHENHYDRAMINE 25 MG CAP PO PRN (21:00)
[2019-02-17] MEDS: SOD CHLORIDE 0.9% 1,000 ML IV SCH (21:21)
--- NOTE | 2019-02-17 21:33 | ERD ---
ER Documentation Chief Complaint Chief Complaint c/o fever/abd pain/back pain x 3 days HPI Patient is a 23-year-old female with no medical problems who presents with "bad back pain". She also has headache and vomiting. She was shaking all over per the family. The symptoms started today. The patient has fevers as well and took Tylenol 3 hours ago. She has pain with urination. She has no cough. Upon review of old medical records this is the patient's 13th visit to the ER since 2012. She does not currently have a primary doctor. ROS All systems reviewed and are negative except as per history of present illness. Medications Home Meds Active Scripts Loratadine (Loratadine) 10 Mg Tab.rapdis, 10 MG PO DAILY for 14 Days Prov:AINSLEY FRITZ 09/08/17 Prednisone* (Prednisone*) 20 Mg Tab, 40 MG PO DAILY for 5 Days, TAB Prov:AINSLEY FRITZ 09/08/17 Diphenhydramine Hcl* (Benadryl*) 25 Mg Cap, 25 MG PO Q8 PRN for ITCHING, #30 CAP Prov:AINSLEY FRITZ 09/08/17 Permethrin (Permethrin) 120 Ml Liquid, 120 ML TP apply once for 1 Day, #1 Prov:AINSLEY FRITZ Massiel 09/08/17 Ibuprofen* (Motrin*) 400 Mg Tab, 400 MG PO Q6, #15 TAB Prov:KIMBERLEE BOOTH MD 04/22/17 Neomycin Marcelino/Bacitrac Zn/Poly (Triple Antibiotic Ointment) 28 Gm Oint...g., 28 GM TP TID for 7 Days Prov:KIMBERLEE BOOTH MD 04/22/17 Sulfamethoxazole/Trimethoprim* (Bactrim Ds* Tablet) 1 Each Tablet, 1 TAB PO BID for 7 Days, TAB Prov:MICHAEL GUAMAN PA-C 04/14/17 Cephalexin* (Keflex*) 500 Mg Capsule, 500 MG PO QID for 5 Days, CAP Prov:KIMBERLEE BOOTH MD 12/23/16 Cephalexin* (Keflex*) 500 Mg Capsule, 500 MG PO QID for 5 Days, CAP Prov:KIMBERLEE BOOTH MD 02/01/16 Bismuth Subsalicylate* (Pepto-Bismol*) 262 Mg/15 Ml Oral.susp, 15 ML PO Q3H PRN for DIARRHEA for 4 Days, ML Prov:KIMBERLEE BOOTH MD 02/01/16 Ondansetron Hcl* (Zofran* ODT) 8 mg -ODT Tab.disper, 8 MG PO Q6 PRN for NAUSEA AND/OR VOMITING, #8 TAB Prov:KIMBERLEE BOOTH MD 02/01/16 Allergies Allergies: Coded Allergies: Penicillins (Verified Allergy, Unknown, RASH, 02/17/19) PMhx/Soc Medical and Surgical Hx: pt denies Medical Hx, pt denies Surgical Hx History of Surgery: No Anesthesia Reaction: No Hx Neurological Disorder: No Hx Respiratory Disorders: No Hx Cardiac Disorders: No Hx Psychiatric Problems: No Hx Miscellaneous Medical Probl: Yes (Pyelonephritis) Hx Alcohol Use: Yes Hx Substance Use: No Hx Tobacco Use: Yes Smoking Status: Never smoker FmHx Family History: No diabetes Physical Exam Vitals Vital Signs Date Temp Pulse Resp B/P (MAP) Pulse Ox O2 O2 Flow FiO2 Time Delivery Rate 02/17/19 102.5 106 16 103/66 98 Room Air 21:09 (78) 02/17/19 102.5 21:04 02/17/19 105.9 144 20 173/93 97 19:41 (119) Physical Exam Const: Moderate distress Head: Atraumatic Eyes: Normal Conjunctiva ENT: Normal External Ears, Nose and Mouth. Neck: Full range of motion. No meningismus. Resp: Clear to auscultation bilaterally Cardio: Tachycardic rate without murmur Abd: Soft, non tender, non distended. Normal bowel sounds Skin: No petechiae or rashes Back: No midline or flank tenderness Ext: No cyanosis, or edema Neur: Awake and alert Psych: Normal Mood and Affect Result Diagram: 02/17/19199902/17/191999 Results 24 hrs Laboratory Tests Test 02/17/19 20:00 02/17/19 20:07 02/17/19 20:11 02/17/19 20:14 White Blood Count 6.8 10^3/ul Red Blood Count 4.49 10^6/ul Hemoglobin 14.0 g/dl Hematocrit 41.8 % Mean Corpuscular 93.1 fl Volume Mean Corpuscular 31.2 pg Hemoglobin Mean Corpuscular 33.5 g/dl Hemoglobin Concent Red Cell 11.9 % Distribution Width Platelet Count 190 10^3/UL Mean Platelet 10.3 fl Volume Immature 0.300 % Granulocytes % Neutrophils % 81.6 % Lymphocytes % 14.2 % Monocytes % 2.4 % Eosinophils % 1.2 % Basophils % 0.3 % Nucleated Red Blood 0.0 /100WBC Cells % Immature 0.020 10^3/ul Granulocytes # Neutrophils # 5.5 10^3/ul Lymphocytes # 1.0 10^3/ul Monocytes # 0.2 10^3/ul Eosinophils # 0.1 10^3/ul Basophils # 0.0 10^3/ul Nucleated Red Blood 0.0 10^3/ul Cells # Sodium Level 139 mmol/L Potassium Level 3.8 mmol/L Chloride Level 103 mmol/L Carbon Dioxide 25 mmol/L Level Anion Gap 11 Blood Urea Nitrogen 12 mg/dl Creatinine 0.90 mg/dl Est Glomerular > 60 mL/min Filtrat Rate mL/min Glucose Level 108 mg/dl Calcium Level 9.6 mg/dl Total Bilirubin 0.3 mg/dl Direct Bilirubin 0.00 mg/dl Indirect Bilirubin 0.3 mg/dl Aspartate Amino 21 IU/L Transf (AST/SGOT) Alanine 22 IU/L Aminotransferase (A LT/SGPT) Alkaline 90 IU/L Phosphatase Troponin I < 0.012 ng/ml Total Protein 8.3 g/dl Albumin 4.8 g/dl Globulin 3.50 g/dl Albumin/Globulin 1.37 Ratio Urine Color YELLOW Urine Clarity SLIGHTLY CLOUDY Urine pH 5.0 Urine Specific 1.016 [place] Urine Ketones NEGATIVE mg/dL Urine Nitrite NEGATIVE mg/dL Urine Bilirubin NEGATIVE mg/dL Urine Urobilinogen NEGATIVE mg/dL Urine Leukocyte 2+ Lolly/ul Esterase Urine Microscopic 14 /HPF RBC Urine Microscopic 123 /HPF WBC Urine Bacteria FEW /HPF Urine Hemoglobin 3+ mg/dL Urine Glucose NEGATIVE mg/dL Urine Total Protein NEGATIVE mg/dl Urine NEGATIVE Test Lactic Acid Level 2.5 mmol/L POC Venous Lactate 2.1 mmol/L POC Beta HCG, NEGATIVE Qualitative Test 02/17/19 20:15 Bedside Urine pH 6.0 (LAB) Bedside Urine 1+ Protein (LAB) Bedside Urine Negative Glucose (UA) Bedside Urine Negative Ketones (LAB) Bedside Urine Blood 3+ Bedside Urine Negative Nitrite (LAB) Bedside Urine 1+ Leukocyte Esterase (L Current Medications Medications Dose Sig/Carlos Start Time Status Last (Trade) Ordered Route PRN Stop Time Admin Dose Reason Admin Vancomycin 250 ml @ ONCE ONCE 02/17/19 HCl 125 mls/hr IVPB 21:00 02/17/19 22:59 Aztreonam 50 ml @ ONCE STAT 02/17/19 DC 100 mls/hr IVPB 20:50 02/17/19 21:19 Morphine 4 mg ONCE STAT 02/17/19 DC 02/17/19 Sulfate IV 20:50 02/17/19 21:05 (morphine) 20:52 Ondansetron 4 mg ONCE STAT 02/17/19 DC 02/17/19 HCl (Zofran IV 20:50 02/17/19 21:05 Inj) 20:52 Ondansetron 4 mg BRIDGE ORDER 02/17/19 HCl (Zofran PRN IV 21:00 02/18/19 Inj) NAUSEA/VOMITI 20:59 NG 650 mg ER BRIDGE 02/17/19 02/17/19 Acetaminophen PRN PO 21:00 02/18/19 21:04 (Tylenol .MILD PAIN 20:59 Tab) 1-3 OR TEMP Sodium 1,000 ml @ Q8H IV 02/17/19 02/17/19 Chloride 125 mls/hr 20:54 21:21 IV Flush 3 ml PER 02/17/19 (NS 3 ml) PROTOCOL IV 21:00 Ondansetron 4 mg Q6H PRN 02/17/19 HCl (Zofran IV 21:00 Inj) NAUSEA/VOMITI NG 650 mg Q6H PRN 02/17/19 Acetaminophen PO .PAIN 1-3 21:00 (Tylenol OR TEMP Tab) 1 tab Q6H PRN 02/17/19 Acetaminophen PO .MOD PAIN 21:00 / 4-6 Hydrocodone Bitart ([place] (5/325)) 2 tab Q6H PRN 02/17/19 Acetaminophen PO .SEVERE 21:00 / PAIN 7-10 Hydrocodone Bitart ([place]ger (5/325)) Heparin 5,000 unit Q12 SC 02/17/19 Sodium 21:00 (Porcine) (Heparin (5000 Units/1ml)) 25 mg Q8 PRN PO 02/17/19 Diphenhydrami ITCHING 21:00 ne HCl (Benadryl) Loratadine 10 mg DAILY PO 02/18/19 (Claritin) 09:00 Procedures/MDM EKG read by me: Rate/Rhythm: Sinus tachycardia Intervals: Normal Impression: Tachycardia without ischemia Chest x-ray read by radiology. CT scan of the abdomen and pelvis pending at this time. Sepsis Documentation: Patient's infectious symptoms have not stabilized and the patient is at risk of rapid decompensation. The patient will be admitted for careful hydration, antibiotic therapy, and infectious source control. SEVERE SEPSIS CRITERIA: Infectious source: Pyelonephritis End organ damage indicated by: Lactate greater than 2 SEPSIS MANAGEMENT Time of recognition of sepsis: 2006. Time of recognition of severe sepsis: 2006. Time of recognition of septic shock: No septic shock at this time. 3 HOUR BUNDLE Blood cultures x 2 before broad-spectrum antibiotics: Yes 30 ml/kg NS bolus completed Initial lactate 2.5 Repeat lactate pending SEPTIC SHOCK ASSESSMENT: No lactic acid > 4.0 No persistent hypotension (SBP < 90 or 40 mmHg drop, MAP < 65) despite 30 mL/kg IV fluid bolus VOLUME REASSESSMENT FOR SEPTIC SHOCK: No septic shock at this time PERSISTENT HYPOTENSION TREATMENT: Comfort care no Central line not Required Vasopressor started not required I considered further perfusion assessment with CVP measurement, SCVO2, bedside ultrasound volume assessment, passive leg raise, trial of further fluid bolus. And proceeded with 30 ml/kg fluid bolus of NSS, broad spectrum antibiotics, and admission. The patient is admitted to the panel team to a medical surgical inpatient bed. CRITICAL CARE Critical care time 35 minutes Emergent fluid management while maintaining close respiratory support. Provision of immediate and broad-spectrum antibiotic therapy. Simultaneous assessment for possible sources in order to direct targeted therapy. Consideration for invasive and chemical support to prevent cardiopulmonary co llapse. Critical care time is independent of procedures performed. Departure Diagnosis: Primary Impression: Severe sepsis Additional Impression: Pyelonephritis Condition: Serious TERESSA MANCIA MD February 17, 2019 21:33
--- NOTE | 2019-02-17 22:12 | HP ---
Date/Time of Note Date/Time of Note DATE: 02/17/19 TIME: 22:12 Assessment/Plan VTE Prophylaxis Pharmacological prophylaxis: heparin Assessment/Plan Assessment/Plan 23-year-old female with no significant past medical history who presented with lower back pain, bilateral flank pain and fever/chills and found to be septic Secondary to pyelonephritis and community-acquired pneumonia PLAN -IV antibiotic, IV fluid -Follow-up culture results -Pain management Result Diagram: 02/17/19199902/17/191999 Results 24hrs Laboratory Tests Test 02/17/19 20:00 02/17/19 20:07 02/17/19 20:11 02/17/19 20:14 White Blood Count 6.8 Red Blood Count 4.49 Hemoglobin 14.0 Hematocrit 41.8 Mean Corpuscular 93.1 Volume Mean Corpuscular 31.2 Hemoglobin Mean Corpuscular 33.5 Hemoglobin Concent Red Cell 11.9 Distribution Width Platelet Count 190 Mean Platelet 10.3 Volume Immature 0.300 Granulocytes % Neutrophils % 81.6 H Lymphocytes % 14.2 L Monocytes % 2.4 Eosinophils % 1.2 Basophils % 0.3 Nucleated Red 0.0 Blood Cells % Immature 0.020 Granulocytes # Neutrophils # 5.5 Lymphocytes # 1.0 Monocytes # 0.2 L Eosinophils # 0.1 Basophils # 0.0 Nucleated Red 0.0 Blood Cells # Sodium Level 139 Potassium Level 3.8 Chloride Level 103 Carbon Dioxide 25 Level Anion Gap 11 Blood Urea 12 Nitrogen Creatinine 0.90 Est Glomerular > 60 Filtrat Rate mL/min Glucose Level 108 Calcium Level 9.6 Total Bilirubin 0.3 Direct Bilirubin 0.00 Indirect Bilirubin 0.3 Aspartate Amino 21 Transf (AST/SGOT) Alanine 22 Aminotransferase ( ALT/SGPT) Alkaline 90 Phosphatase Troponin I < 0.012 Total Protein 8.3 H Albumin 4.8 Globulin 3.50 H Albumin/Globulin 1.37 Ratio Urine Color YELLOW Urine Clarity SLIGHTLY CLOUDY A Urine pH 5.0 Urine Specific 1.016 [place] Urine Ketones NEGATIVE Urine Nitrite NEGATIVE Urine Bilirubin NEGATIVE Urine Urobilinogen NEGATIVE Urine Leukocyte 2+ H Esterase Urine Microscopic 14 H RBC Urine Microscopic 123 H WBC Urine Bacteria FEW A Urine Hemoglobin 3+ H Urine Glucose NEGATIVE Urine Total NEGATIVE Protein Urine NEGATIVE Test Lactic Acid Level 2.5 *H POC Venous Lactate 2.1 *H POC Beta HCG, NEGATIVE Qualitative Test 02/17/19 20:15 Bedside Urine pH 6.0 (LAB) Bedside Urine 1+ H Protein (LAB) Bedside Urine Negative Glucose (UA) Bedside Urine Negative Ketones (LAB) Bedside Urine 3+ H Blood Bedside Urine Negative Nitrite (LAB) Bedside Urine 1+ H Leukocyte Esterase (L HPI/ROS Admit Date/Time Admit Date/Time Hx of Present Illness This is a 23-year-old female with no significant past medical history who presented to ER complaining of lower back pain as well as bilateral flank pain. She also complains of chills/fever and headache. When patient presents the ER, patient was febrile with a temperature of almost 106, heart rate 144. WBC 7000. UA consistent with UTI. Chest x-ray shows bilateral interstitial infiltrate. CT abdomen/pelvis shows the following. 1. Mild fat stranding surrounding the right renal pelvis and proximal right ureter, further evaluation is limited due to lack of intravenous contrast. Recommend correlation with urinalysis to exclude urinary tract infection. 2. 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 PMH/Family/Social Past Medical History Past Surgical Hx: other (see hpi) Family History Significant Family History: no pertinent family hx Social History Alcohol Use: heavy (2 beers a day) Smoking Status: Never smoker Drug Use: none Exam Constitutional: other (no acute distress) ENMT: nl external ears & nose Neck: supple, non-tender Respiratory: normal air movement Cardiovascular: nl pulses Gastrointestinal: soft Extremities: normal pulses Medications Current Medications Vancomycin HCl 250 ml @ 125 mls/hr ONCE ONCE IVPB Last administered on 02/17/19at 21:48; Admin Dose 125 MLS/HR; Start 02/17/19 at 21:00; Stop 02/17/19 at 22:59 Ondansetron HCl (Zofran Inj) 4 mg BRIDGE ORDER PRN IV NAUSEA/VOMITING; Start 02/17/19 at 21:00; Stop 02/18/19 at 20:59 Acetaminophen (Tylenol Tab) 650 mg ER BRIDGE PRN PO .MILD PAIN 1-3 OR TEMP Last administered on 02/17/19at 21:04; Admin Dose 650 MG; Start 02/17/19 at 21:00; Stop 02/18/19 at 20:59 Sodium Chloride 1,000 ml @ 125 mls/hr Q8H IV Last administered on 02/17/19at 21:21; Admin Dose 125 MLS/HR; Start 02/17/19 at 20:54 IV Flush (NS 3 ml) 3 ml PER PROTOCOL IV ; Start 02/17/19 at 21:00 Ondansetron HCl (Zofran Inj) 4 mg Q6H PRN IV NAUSEA/VOMITING; Start 02/17/19 at 21:00 Acetaminophen (Tylenol Tab) 650 mg Q6H PRN PO .PAIN 1-3 OR TEMP; Start 02/17/19 at 21:00 Acetaminophen/ Hydrocodone Bitart ([place] (5/325)) 1 tab Q6H PRN PO .MOD PAIN 4- 6; Start 02/17/19 at 21:00 Acetaminophen/ Hydrocodone Bitart ([place] (5/325)) 2 tab Q6H PRN PO .SEVERE PAIN 7-10; Start 02/17/19 at 21:00 Heparin Sodium (Porcine) (Heparin (5000 Units/1ml)) 5,000 unit Q12 SC ; Start 02/17/19 at 21:00 Diphenhydramine HCl (Benadryl) 25 mg Q8 PRN PO ITCHING; Start 02/17/19 at 21:00 Loratadine (Claritin) 10 mg DAILY PO ; Start 02/18/19 at 09:00 Coded Allergies: vancomycin (Verified Allergy, Intermediate, 02/18/19) THROAT ITCHING CHILLS Penicillins (Verified Allergy, Unknown, RASH, 02/17/19) Social History Smoking Status: Never smoker Exam/Review of Systems Vital Signs Vitals Vital Signs Date Temp Pulse Resp B/P (MAP) Pulse Ox O2 O2 Flow FiO2 Time Delivery Rate 02/17/19 102.5 106 16 103/66 98 Room Air 21:09 (78) AMADO MARTÍNEZ MD February 17, 2019 22:12
[2019-02-17 23:30] VITALS: BP 83/41; PULSE 83; RESP 18
[2019-02-17 23:44] VITALS: Ht 157.5 cm; Wt 61.5 kg
[2019-02-18] MEDS: HYDROCODONE/APAP (5/325) TAB PO PRN ×3 (00:20→15:57)
[2019-02-18] MEDS: HEPARIN 5,000 UNIT/1 ML VIAL SC SCH ×3 (00:42→21:09)
[2019-02-18 02:40] VITALS: BP 119/76; PULSE 78; RESP 16
[2019-02-18] MEDS: SOD CHLORIDE 0.9% 1,000 ML IV SCH ×2 (02:43→11:00)
[2019-02-18] MEDS ORDERED: VANCOMYCIN IV PER PHARMACY XX SCH (04:00)
[2019-02-18] MEDS ORDERED: VANCOMYCIN 750 MG (PMX) 250 ML IVPB SCH (07:00)
[2019-02-18 08:14] VITALS: BP 90/70; PULSE 62; RESP 18
[2019-02-18] MEDS: LORATADINE 10 MG TAB PO SCH (08:37)
[2019-02-18 08:40] VITALS: BP 110/65; PULSE 70; RESP 16
[2019-02-18] MEDS ORDERED: AZTREONAM 1 GM/NS (PMX) 50 ML IVPB SCH (09:00)
[2019-02-18] MEDS ORDERED: METHYLPREDNISOLONE 40 MG INJ IV ONE (09:30)
[2019-02-18] MEDS: LEVOFLOXACIN 750MG/D5W (PMX) 150 ML IVPB SCH (11:49)
[2019-02-18 13:38] VITALS: BP 108/57; PULSE 82; RESP 16
--- NOTE | 2019-02-18 14:12 | PN ---
Date/Time of Note Date/Time of Note DATE: 02/18/19 TIME: 14:12 Objective Vitals Vital Signs Date Temp Pulse Resp B/P (MAP) Pulse Ox O2 O2 Flow FiO2 Time Delivery Rate 02/18/19 98.8 82 16 108/57 96 Room Air 13:38 (74) Intake and Output 02/17/19 02/17/19 02/18/19 1515:00 23:00 07:00 IntakeIntake Total 1800 ml BalanceBalance 1800 ml Results Result Diagram: 02/18/19 0616 02/18/19 0616 Medications Medications Current Medications Sodium Chloride 1,000 ml @ 50 mls/hr Q20H IV Last administered on 02/18/19at 11: 00; Admin Dose 50 MLS/HR; Start 02/17/19 at 20:54 IV Flush (NS 3 ml) 3 ml PER PROTOCOL IV ; Start 02/17/19 at 21:00 Ondansetron HCl (Zofran Inj) 4 mg Q6H PRN IV NAUSEA/VOMITING; Start 02/17/19 at 21:00 Acetaminophen (Tylenol Tab) 650 mg Q6H PRN PO .PAIN 1-3 OR TEMP; Start 02/17/19 at 21:00 Acetaminophen/ Hydrocodone Bitart ([place] (5/325)) 1 tab Q6H PRN PO .MOD PAIN 4- 6; Start 02/17/19 at 21:00 Acetaminophen/ Hydrocodone Bitart ([place] (5/325)) 2 tab Q6H PRN PO .SEVERE PAIN 7-10 Last administered on 02/18/19at 08:36; Admin Dose 2 TAB; Start 02/17/19 at 21:00 Heparin Sodium (Porcine) (Heparin (5000 Units/1ml)) 5,000 unit Q12 SC Last administered on 02/18/19at 08:40; Admin Dose 5,000 UNIT; Start 02/17/19 at 21:00 Diphenhydramine HCl (Benadryl) 25 mg Q8 PRN PO ITCHING Last administered on 02/18/19at 08:52; Admin Dose 25 MG; Start 02/17/19 at 21:00 Loratadine (Claritin) 10 mg DAILY PO Last administered on 02/18/19at 08:37; Admin Dose 10 MG; Start 02/18/19 at 09:00 Levofloxacin/ Dextrose 150 ml @ 100 mls/hr Q24H IVPB Last administered on 02/18/19at 11:49; Admin Dose 100 MLS/HR; Start 02/18/19 at 10:30 VTE Prophylaxis Risk score (from [facility] [place] risk: 0 SCD applied (from [facility] [place]): Yes Lines/Catheters IV Catheter Type: [place] in Place: No Assessment/Plan Hospital Course Subjective Patient still feeling weak Objective Physical exam General: Patient is laying in bed and answers questions appropriately Mentation: Patient is alert and oriented 4, Head: Normocephalic atraumatic Eyes: EOMI, pupils reactive to light Neck: Supple, nontender, midline Respiratory: Clear to auscultation bilaterally Cardiovascular: regular rate, no obvious murmurs Gastrointestinal: non-tender to palpation, bowel sounds heard. Neurological: Moves all extremities spontaneously Musculoskeletal: Bilateral flank pain Assessment and plan Right-sided pyelonephritis -IV antibiotic -Await urine culture before discharge -IV fluid Sepsis -Blood cultures -IV antibiotic -IV fluid -Lactic acid within normal limits Pneumonia -IV antibiotic -Breathing treatments as needed Of note: Patient appears to have a antibiotic reaction to vancomycin, vancomycin discontinued Disposition -Continue IV antibiotic, follow-up with cultures. DWIGHT COBB February 18, 2019 14:12
[2019-02-18] MEDS: ONDANSETRON 4 MG INJ IV PRN (16:01)
[2019-02-18 20:03] VITALS: BP 99/55; PULSE 66; RESP 18
[2019-02-19 02:32] VITALS: BP 101/57; PULSE 69; RESP 18
[2019-02-19] MEDS: HYDROCODONE/APAP (5/325) TAB PO PRN ×3 (06:09→19:51)
[2019-02-19] MEDS: SOD CHLORIDE 0.9% 1,000 ML IV SCH ×3 (06:11→21:45)
[2019-02-19 07:59] VITALS: BP 91/51; PULSE 51; RESP 18
[2019-02-19] MEDS: LORATADINE 10 MG TAB PO SCH (09:04)
[2019-02-19] MEDS: HEPARIN 5,000 UNIT/1 ML VIAL SC SCH ×2 (09:06→19:53)
[2019-02-19] MEDS: LEVOFLOXACIN 750MG/D5W (PMX) 150 ML IVPB SCH (09:07)
--- NOTE | 2019-02-19 13:22 | PN ---
Date/Time of Note Date/Time of Note DATE: 02/19/19 TIME: 13:20 Assessment/Plan VTE Prophylaxis Risk score (from Nsg)>0 risk: 0 SCD applied (from Ns): No SCD contraindicated: low risk/ambulating Pharmacological prophylaxis: LMWH Lines/Catheters IV Catheter Type (from Nrsg): [place] Lock Urinary Cath still in place: No Assessment/Plan Hospital Course Assessment and plan 1. Sepsis, stable finish antibiotics 2. Acute pyelonephritis 3. Acute pneumonia? Aspiration? 4. Alcoholism . Anemia probably iron deficient stable observe Subjective feels a little better. Still has some back pain headache but tolerating diet less fever. No dysuria hematuria. Nonproductive cough Objective: Vital signs stable Physical exam No pallor Regular no murmur rub gallop Clear no tachypnea Bs+ nt nd; no RRG; no lt cvat No edema Result Diagram: 02/19/19 0556 02/19/19 0556 Results 24hrs Laboratory Tests Test 02/19/19 05:56 White Blood Count 11.2 H Red Blood Count 3.68 L Hemoglobin 11.3 L Hematocrit 35.3 L Mean Corpuscular Volume 95.9 Mean Corpuscular Hemoglobin 30.7 Mean Corpuscular Hemoglobin Concent 32.0 Red Cell Distribution Width 12.0 Platelet Count 210 Mean Platelet Volume 11.0 H Immature Granulocytes % 0.600 H Neutrophils % 74.1 Lymphocytes % 17.0 Monocytes % 8.1 Eosinophils % 0.1 Basophils % 0.1 Nucleated Red Blood Cells % 0.0 Immature Granulocytes # 0.070 H Neutrophils # 8.3 H Lymphocytes # 1.9 Monocytes # 0.9 Eosinophils # 0.0 Basophils # 0.0 Nucleated Red Blood Cells # 0.0 Sodium Level 140 Potassium Level 4.4 Chloride Level 110 Carbon Dioxide Level 25 Anion Gap 5 Blood Urea Nitrogen 15 Creatinine 0.80 Est Glomerular Filtrat Rate mL/min > 60 Glucose Level 104 Calcium Level 9.1 Phosphorus Level 3.4 Magnesium Level 2.1 Iron Level 62 Total Iron Binding Capacity 268 Percent Iron Saturation 23 Ferritin 59.0 Exam/Review of Systems Exam Vitals Vital Signs Date Temp Pulse Resp B/P (MAP) Pulse Ox O2 O2 Flow FiO2 Time Delivery Rate 02/19/19 97.8 51 18 91/51 (64) 97 Room Air 07:59 Intake and Output 5/602/18/19 02/19/19 1515:00 23:00 07:00 IntakeIntake Total 1530 ml 710 ml 650 ml OutputOutput Total 400 ml BalanceBalance 1130 ml 710 ml 650 ml Results Results 24hrs Laboratory Tests Test 02/19/19 05:56 White Blood Count 11.2 H Red Blood Count 3.68 L Hemoglobin 11.3 L Hematocrit 35.3 L Mean Corpuscular Volume 95.9 Mean Corpuscular Hemoglobin 30.7 Mean Corpuscular Hemoglobin Concent 32.0 Red Cell Distribution Width 12.0 Platelet Count 210 Mean Platelet Volume 11.0 H Immature Granulocytes % 0.600 H Neutrophils % 74.1 Lymphocytes % 17.0 Monocytes % 8.1 Eosinophils % 0.1 Basophils % 0.1 Nucleated Red Blood Cells % 0.0 Immature Granulocytes # 0.070 H Neutrophils # 8.3 H Lymphocytes # 1.9 Monocytes # 0.9 Eosinophils # 0.0 Basophils # 0.0 Nucleated Red Blood Cells # 0.0 Sodium Level 140 Potassium Level 4.4 Chloride Level 110 Carbon Dioxide Level 25 Anion Gap 5 Blood Urea Nitrogen 15 Creatinine 0.80 Est Glomerular Filtrat Rate mL/min > 60 Glucose Level 104 Calcium Level 9.1 Phosphorus Level 3.4 Magnesium Level 2.1 Iron Level 62 Total Iron Binding Capacity 268 Percent Iron Saturation 23 Ferritin 59.0 Medications Medication Current Medications Sodium Chloride 1,000 ml @ 50 mls/hr Q20H IV Last administered on 02/19/19at 06:11; Admin Dose 50 MLS/HR; Start 02/17/19 at 20:54 IV Flush (NS 3 ml) 3 ml PER PROTOCOL IV ; Start 02/17/19 at 21:00 Ondansetron HCl (Zofran Inj) 4 mg Q6H PRN IV NAUSEA/VOMITING Last administered on 02/18/19at 16:01; Admin Dose 4 MG; Start 02/17/19 at 21:00 Acetaminophen (Tylenol Tab) 650 mg Q6H PRN PO .PAIN 1-3 OR TEMP; Start 02/17/19 at 21:00 Acetaminophen/ Hydrocodone Bitart ([place] (5/325)) 1 tab Q6H PRN PO .MOD PAIN 4- 6 Last administered on 02/19/19at 12:58; Admin Dose 1 TAB; Start 02/17/19 at 21:00 Acetaminophen/ Hydrocodone Bitart ([place] (5/325)) 2 tab Q6H PRN PO .SEVERE PAIN 7-10 Last administered on 02/18/19 15:57; Admin Dose 2 TAB; Start 02/17/19 at 21:00 Heparin Sodium (Porcine) (Heparin (5000 Units/1ml)) 5,000 unit Q12 SC Last administered on 02/19/19 09:06; Admin Dose 5,000 UNIT; Start 02/17/19 at 21:00 Diphenhydramine HCl (Benadryl) 25 mg Q8 PRN PO ITCHING Last administered on 02/18/19 08:52; Admin Dose 25 MG; Start 02/17/19 at 21:00 Loratadine (Claritin) 10 mg DAILY PO Last administered on 02/19/19 09:04; Admin Dose 10 MG; Start 02/18/19 at 09:00 Levofloxacin/ Dextrose 150 ml @ 100 mls/hr Q24H IVPB Last administered on 02/19 09:07; Admin Dose 100 MLS/HR; Start 02/18/19 at 10:30 SAMMI KATZ MD February 19, 2019 13:22
[2019-02-19] MEDS ORDERED: GUAIFENESIN/DM 5ML CUP PO PRN (13:30)
[2019-02-19 13:59] VITALS: BP 98/57; PULSE 61; RESP 18
[2019-02-19 19:45] VITALS: BP 112/63; PULSE 62; RESP 19
[2019-02-20 02:00] VITALS: BP 138/71; PULSE 75; RESP 20
[2019-02-20] MEDS: LEVOFLOXACIN 750 MG TABLET PO SCH (05:21)
[2019-02-20 07:29] VITALS: BP 101/55; PULSE 53; RESP 16
[2019-02-20] MEDS: LORATADINE 10 MG TAB PO SCH (09:28)
[2019-02-20] MEDS: HEPARIN 5,000 UNIT/1 ML VIAL SC SCH ×2 (09:30→20:49)
[2019-02-20] MEDS: ONDANSETRON 4 MG INJ IV PRN (09:33)
[2019-02-20] MEDS: SOD CHLORIDE 0.9% 1,000 ML IV SCH (13:23)
[2019-02-20] MEDS: HYDROCODONE/APAP (5/325) TAB PO PRN (13:29)
[2019-02-20 13:49] VITALS: BP 105/59; PULSE 81; RESP 16
[2019-02-20 19:48] VITALS: BP 106/56; PULSE 63; RESP 18
--- NOTE | 2019-02-20 21:33 | PN ---
Date/Time of Note Date/Time of Note DATE: 02/20/19 TIME: 21:32 Assessment/Plan VTE Prophylaxis Risk score (from Nsg)>0 risk: 0 SCD applied (from Ns): No SCD contraindicated: low risk/ambulating Pharmacological prophylaxis: LMWH Lines/Catheters IV Catheter Type (from Nrsg): Peripheral IV Urinary Cath still in place: No Assessment/Plan Hospital Course Assessment and plan 1. Sepsis, stable finish antibiotics 2. Acute pyelonephritis 3. Acute pneumonia? Aspiration? 4. Alcoholism 5. Anemia probably iron deficient stable observe Subjective 02/19: feels a little better. Still has some back pain headache but tolerating diet less fever. No dysuria hematuria. Nonproductive cough 02/20: some headache; no fever/ dysuria. Objective: Vital signs stable Physical exam No pallor Regular no murmur rub gallop Clear no tachypnea Bs+ nt nd; no RRG; no lt cvat No edema Result Diagram: 02/19/19 0556 02/19/19 0556 Exam/Review of Systems Exam Vitals Vital Signs Date Temp Pulse Resp B/P (MAP) Pulse Ox O2 O2 Flow FiO2 Time Delivery Rate 02/20/19 98.4 63 18 106/56 97 19:48 (73) 02/20/19 Room Air 13:49 Intake and Output 02/19/19 02/19/19 02/20/19 1515:00 23:00 07:00 IntakeIntake Total 1030 ml 565 ml 600 ml BalanceBalance 1030 ml 565 ml 600 ml Medications Medication Current Medications Sodium Chloride 1,000 ml @ 75 mls/hr [id number] IV Last administered on 02/20/19at 13:23; Admin Dose 75 MLS/HR; Start 02/17/19 at 20:54; Stop 02/20/19 at 23:00 IV Flush (NS 3 ml) 3 ml PER PROTOCOL IV ; Start 02/17/19 at 21:00 Ondansetron HCl (Zofran Inj) 4 mg Q6H PRN IV NAUSEA/VOMITING Last administered on 02/20/19at 09:33; Admin Dose 4 MG; Start 02/17/19 at 21:00 Acetaminophen (Tylenol Tab) 650 mg Q6H PRN PO .PAIN 1-3 OR TEMP Last administered on 02/19/19at 15:31; Admin Dose 650 MG; Start 02/17/19 at 21:00 Acetaminophen/ Hydrocodone Bitart ([place] (5/325)) 1 tab Q6H PRN PO .MOD PAIN 4- 6 Last administered on 02/19/19 12:58; Admin Dose 1 TAB; Start 02/17/19 at 21:00 Acetaminophen/ Hydrocodone Bitart ([place] (5/325)) 2 tab Q6H PRN PO .SEVERE PAIN 7-10 Last administered on 02/20/19 13:29; Admin Dose 2 TAB; Start 02/17/19 at 21:00 Heparin Sodium (Porcine) (Heparin (5000 Units/1ml)) 5,000 unit Q12 SC Last administered on 02/20/19 20:49; Admin Dose 5,000 UNIT; Start 02/17/19 at 21:00 Diphenhydramine HCl (Benadryl) 25 mg Q8 PRN PO ITCHING Last administered on 02/18/19 08:52; Admin Dose 25 MG; Start 02/17/19 at 21:00 Loratadine (Claritin) 10 mg DAILY PO Last administered on 02/20/19 09:28; Admin Dose 10 MG; Start 02/18/19 at 09:00 Levofloxacin (Levaquin) 750 mg DAILY@06 PO Last administered on 02/20/19 05:21; Admin Dose 750 MG; Start 02/20/19 at 06:00 Guaifenesin/ Dextromethorphan (Robitussin Dm Liquid Cup) 10 ml Q4H PRN PO CONSTIPATION; Start 02/19/19 at 13:30 SAMMI KATZ MD February 20, 2019 21:33
[2019-02-21 02:19] VITALS: BP 100/52; PULSE 60; RESP 20
[2019-02-21] MEDS: LEVOFLOXACIN 750 MG TABLET PO SCH (05:23)
[2019-02-21 07:29] VITALS: BP 93/59; PULSE 70; RESP 18
--- NOTE | 2019-02-21 08:00 | DS ---
Date/Time of Note Date/Time of Note DATE: 02/21/19 TIME: 07:58 Discharge Summary Admission/Discharge Info Admit Date/Time February 17, 2019 at 20:52 Discharge Date/Time Patient Condition: Stable Procedures Chest x-ray Concerning for bilateral infiltrates CAT scan abdomen pelvis IMPRESSION: 1. Mild fat stranding surrounding the right renal pelvis and proximal right ureter, further evaluation is limited due to lack of intravenous contrast. Recommend correlation with urinalysis to exclude urinary tract infection. 2. 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 Hx of Present Illness 23-year-old female admitted with sepsis Hospital Course Hospitalist coverage/hospital course 1. Sepsis, stable finish antibiotics, likely due to combination of pyelo nephritis and possible pneumonia. 2. Acute pyelonephritis cystitis, E coli pansensitive including Levaquin. If fever returns consider repeat imaging for abscess. 3. Acute pneumonia? Aspiration?. Consider chest x-ray in 2 weeks 4. Alcoholism 5. Anemia probably iron deficient stable observe 6. Deconditioning. Stable, follow-up with primary 1 week Subjective 02/19: feels a little better. Still has some back pain headache but tolerating diet less fever. No dysuria hematuria. Nonproductive cough 02/20: some headache; no fever/ dysuria. 02/21: No events Objective: Vital signs stable Physical exam No pallor Regular no murmur rub gallop Clear no tachypnea Bs+ nt nd; no RRG; mild lt cvat No edema Home Meds Active Scripts Loratadine (Loratadine) 10 Mg Tab.rapdis, 10 MG PO DAILY for 14 Days Prov:AINSLEY FRITZ 09/08/17 Prednisone* (Prednisone*) 20 Mg Tab, 40 MG PO DAILY for 5 Days, TAB Prov:LUISILAAINSLEY DARBY F 09/08/17 Diphenhydramine Hcl* (Benadryl*) 25 Mg Cap, 25 MG PO Q8 PRN for ITCHING, #30 CAP Prov:AINSLEY FRITZ 09/08/17 Permethrin (Permethrin) 120 Ml Liquid, 120 ML TP apply once for 1 Day, #1 Prov:LUISILAAINSLEY DARBY 09/08/17 Ibuprofen* (Motrin*) 400 Mg Tab, 400 MG PO Q6, #15 TAB Prov:KIMBERLEE BOOTH MD 04/22/17 Neomycin Marcelino/Bacitrac Zn/Poly (Triple Antibiotic Ointment) 28 Gm Oint...g., 28 GM TP TID for 7 Days Prov:KIMBERLEE BOOTH MD 04/22/17 Sulfamethoxazole/Trimethoprim* (Bactrim Ds* Tablet) 1 Each Tablet, 1 TAB PO BID for 7 Days, TAB Prov:MICHAEL GUAMAN PA-C 04/14/17 Cephalexin* (Keflex*) 500 Mg Capsule, 500 MG PO QID for 5 Days, CAP Prov:KIMBERLEE BOOTH MD 12/23/16 Cephalexin* (Keflex*) 500 Mg Capsule, 500 MG PO QID for 5 Days, CAP Prov:KIMBERLEE BOOTH MD 02/01/16 Bismuth Subsalicylate* (Pepto-Bismol*) 262 Mg/15 Ml Oral.susp, 15 ML PO Q3H PRN for DIARRHEA for 4 Days, ML Prov:KIMBERLEE BOOTH MD 02/01/16 Ondansetron Hcl* (Zofran* ODT) 8 mg -ODT Tab.disper, 8 MG PO Q6 PRN for NAUSEA AND/OR VOMITING, #8 TAB Prov:KIMBERLEE BOOTH MD 02/01/16 Primary Care Provider Care Physician No Primary Time spent on discharge: < 30 minutes Pending Labs Laboratory Tests Test 02/21/19 05:38 White Blood Count 7.6 10^3/ul (4.8-10.8) Red Blood Count 4.19 10^6/ul (4.20-5.40) Hemoglobin 13.1 g/dl (12.0-16.0) Hematocrit 39.1 % (37.0-47.0) Mean Corpuscular Volume 93.3 fl (82.0-101.0) Mean Corpuscular Hemoglobin 31.3 pg (29.0-33.0) Mean Corpuscular Hemoglobin Concent 33.5 g/dl (32.0-37.0) Red Cell Distribution Width 12.0 % (11.5-14.5) Platelet Count 239 10^3/UL (140-415) Mean Platelet Volume 10.2 fl (7.4-10.4) Immature Granulocytes % 0.800 % (0.001-0.429) Neutrophils % 52.3 % (39.0-77.0) Lymphocytes % 39.9 % (15.0-51.0) Monocytes % 5.4 % (0.0-11.0) Eosinophils % 1.1 % (0.0-7.0) Basophils % 0.5 % (0.0-2.0) Nucleated Red Blood Cells % 0.0 /100WBC (0.0-0.0) Immature Granulocytes # 0.060 10^3/ul (0.0-0.031) Neutrophils # 4.0 10^3/ul (1.6-7.5) Lymphocytes # 3.0 10^3/ul (0.8-2.9) Monocytes # 0.4 10^3/ul (0.3-0.9) Eosinophils # 0.1 10^3/ul (0.0-0.5) Basophils # 0.0 10^3/ul (0.0-0.1) Nucleated Red Blood Cells # 0.0 10^3/ul (0.0-0.0) Sodium Level 139 mmol/L (135-144) Potassium Level 3.9 mmol/L (3.5-5.1) Chloride Level 104 mmol/L (97-110) Carbon Dioxide Level 28 mmol/L (21-31) Anion Gap 7 (5-13) Blood Urea Nitrogen 16 mg/dl (7-20) Creatinine 1.02 mg/dl (0.44-1.00) Est Glomerular Filtrat Rate mL/min > 60 mL/min (>60) Glucose Level 91 mg/dl (70-220) Calcium Level 9.2 mg/dl (8.4-10.2) Total Bilirubin 0.1 mg/dl (0.2-1.3) Direct Bilirubin 0.00 mg/dl (0.00-0.20) Indirect Bilirubin 0.1 mg/dl (0-1.1) Aspartate Amino Transf (AST/SGOT) 17 IU/L (15-46) Alanine Aminotransferase (ALT/SGPT) 21 IU/L (13-69) Alkaline Phosphatase 69 IU/L (42-121) Total Protein 6.9 g/dl (6.1-8.1) Albumin 3.8 g/dl (3.3-4.9) Globulin 3.10 g/dl (1.3-3.2) Albumin/Globulin Ratio 1.22 SAMMI KATZ MD February 21, 2019 08:00
--- NOTE | 2019-02-21 08:02 | PDOCDIS ---
Discharge Instructions CONDITION [id number] Patient Condition: [id number] Stable HOME CARE INSTRUCTIONS: [id number] Diet Instructions: [id number] Regular [id number] Special Diet: [id number] stay hydrated; 6-8 glasses of fluids/ day; avoid alcohol. ACTIVITY: [id number] Activity Restrictions: [id number] Slowly Increase Activity [id number] Activity Restrictions Comment: [id number] no driving if dizzy FOLLOW UP/APPOINTMENTS Follow-up Plan appt primary 1wk; Ask PCP to call med records [phone] for Discharge Summary SAMMI KATZ MD February 21, 2019 08:02
[2019-02-21] MEDS ORDERED: ACET325T33 PO (08:03)
[2019-02-21] MEDS ORDERED: LEVO750T25 PO (08:03)
[2019-02-21] MEDS ORDERED: GUAI120S25 PO (08:03)
[2019-02-21] MEDS: LORATADINE 10 MG TAB PO SCH (10:20)
[2019-02-21] MEDS: HEPARIN 5,000 UNIT/1 ML VIAL SC SCH (10:21)
== END 2019-02-21 10:10 | disposition home or self-care (01) | DRG 871 ==
LOC: E/R 19:37 → 5EC 20:52
PROVIDERS: ADMIT Internal Medicine; ATTEND Internal Medicine
DX: A41.9 Sepsis, unspecified organism (principal); J69.0 Pneumonitis due to inhalation of food and vomit; N10 Acute pyelonephritis; N30.00 Acute cystitis without hematuria; R65.20 Severe sepsis without septic shock; F10.20 Alcohol dependence, uncomplicated; B96.20 Unspecified Escherichia coli [E. coli] as the cause of diseases classified elsewhere; D50.9 Iron deficiency anemia, unspecified; Z88.0 Allergy status to penicillin
CPT/HCPCS: 71045; 74176; 80048; 80053; 81001; 81003; 81025; 82728; 83540; 83605; 83735; 84100; 84484; 84703; 85025; 87086; J1644; J1956; J2270; J2405; J2920; J3370; J7030